=== PATIENT | male | born 1945 | race Caucasian/White ===

== ENCOUNTER 2017-02-18 07:58 | Emergency (ER) | payer OTHER ==
[2017-02-18 11:03] LABS: ANION GAP 11 mEq/L (8-16); CALCIUM 9.1 mg/dL (8.5-10.4); CARBON DIOXIDE 22 mEq/l (22-31); CHLORIDE 110 mEq/L (97-110); GLOMERULAR FILTRATION RATE > 60; GLUCOSE 102 mg/dL (70-100); POTASSIUM 4.9 mEq/L (3.5-5.2); SODIUM 143 mEq/L (134-144)
--- NOTE | 2017-02-18 11:45 | EDPHY ---
H & P Time Seen by Provider: 02/18/17 08:39 HPI/ROS: CHIEF COMPLAINT: Left leg pain HISTORY OF PRESENT ILLNESS: This 71-year-old man presents with pain in his left leg intermittently since last . He describes it is like a" charley horse" which is better if he exercises the leg. Describes the pain is intermittent. Sometimes shoots up from his calf into his thigh and hip area. It is not associated with skin changes or weakness or numbness in the foot or any known trauma. Pain is really intermittent worse sometimes it feels fine and then suddenly it will feel very painful and difficult to stand. He says the pain is definitely not exertional. Symptoms will come on when he is lying flat in bed. REVIEW OF SYSTEMS: Eye: no change in vision ENT: no sore throat Cardiac: no chest pain or syncope Pulmonary: no cough or SOB Abdomen: no vomiting, diarrhea, abdominal pain Musculoskeletal: HPI, no back pain. Skin: no rash Neuro: no headache Constitutional: no fever : No incontinence. A comprehensive 10 point review of systems is otherwise negative aside from elements mentioned in the history of present illness. PAST MEDICAL HISTORY: History of kidney stones and left knee meniscus surgery. Social history: Visiting from [place], nonsmoker. 214/108, 69, 16, 36.4. General Appearance: Alert and conversant, cooperative. Eyes: No scleral icterus. ENT, Mouth: Normal mucous membranes. Respiratory: Normal respiratory effort, breath sounds equal, lungs are clear to auscultation. Cardiovascular: Regular rate and rhythm. Gastrointestinal: Abdomen is soft and non tender. no pulsatile mass. Neurological: Alert and oriented x3. Normally conversant. Face symmetric, normal movement and sensation in all extremities. Straight leg raising negative bilaterally. Normal pulses in both feet posterior tibial. Patellar reflexes 2+ symmetric. Toes downgoing. Skin: Warm and dry, no rashes. Musculoskeletal: Compartments are soft and calf and thigh. Normal range of motion of left hip knee and ankle. Psychiatric: Not agitated. Emergency Department course/MDM: Negative x-ray of the tib-fib per Davy at 9:40 a.m.. Normal ultrasound per Hillary at 10:12 a.m., no DVT. Chemistries reviewed without metabolic abnormality. Discussed the patient I do not have a definite source for his pain although I think that with emergent condition such as compartment syndrome, aortic dissection, embolic aortic occlusion, fracture, arterial or venous clot, spinal cord compromise, are all unlikely. Does not give a history to suggest claudication is likely. Plan for symptomatic treatment and follow-up back in [place]. Elevated BP likely due to pain; doubt acute hypertensive emergency. Allergies/Adverse Reactions: Cephalosporins Allergy (Verified 02/18/17 11:45) prednisone Allergy (Verified 02/18/17 11:46) watermelon Allergy (Verified 02/18/17 11:45) Home Medications: Medication Instructions Recorded oxyCODONE/APAP 5/325 [Percocet] 1 - 2 tab PO Q6 PRN #11 tab 02/18/17 Medical Decision Making - Diagnostics Imaging Results: Imaging Impressions Extremity Venous Study 02/18/17 00:00 Impression: No deep venous thrombosis left leg. Results called to the emergency room at the time of the examination. Tibia/Fibula X-Ray 02/18/17 08:49 Impression: There is no acute osseous abnormality. A preliminary interpretation was provided to Dr. Charles Morgan at 9:30 AM on 2016. - Data Points Laboratory Results: Laboratory Results 02/18/17 06:15 02/18/17 06:15 02/18/17 02/18/17 06:15 06:15 WBC 5.09 10^3/uL 10^3/uL (3.80-9.50) RBC 5.14 10^6/uL 10^6/uL (4.40-6.38) Hgb 15.0 g/dL g/dL (13.7-17.5) Hct 44.2 % % (40.0-51.0) MCV 86.0 fL fL (81.5-99.8) MCH 29.2 pg pg (27.9-34.1) MCHC 33.9 g/dL g/dL (32.4-36.7) RDW 13.4 % % (11.5-15.2) Plt Count 258 10^3/uL 10^3/uL (150-400) MPV 9.0 fL fL (8.7-11.7) Neut % (Auto) 58.2 % % (39.3-74.2) Lymph % (Auto) 26.7 % % (15.0-45.0) [place] % (Auto) 10.8 % % (4.5-13.0) Eos % (Auto) 2.9 % % (0.6-7.6) Baso % (Auto) 1.0 % % (0.3-1.7) Nucleat RBC Rel Count 0.0 % % (0.0-0.2) Absolute Neuts (auto) 2.96 10^3/uL 10^3/uL (1.70-6.50) Absolute Lymphs (auto) 1.36 10^3/uL 10^3/uL (1.00-3.00) Absolute Monos (auto) 0.55 10^3/uL 10^3/uL (0.30-0.80) Absolute Eos (auto) 0.15 10^3/uL 10^3/uL (0.03-0.40) Absolute Basos (auto) 0.05 10^3/uL 10^3/uL (0.02-0.10) Absolute Nucleated RBC 0.00 10^3/uL 10^3/uL (0-0.01) Immature Gran % 0.4 % % (0.0-1.1) Immature Gran # 0.02 10^3/uL 10^3/uL (0.00-0.10) Sodium 143 mEq/L mEq/L (134-144) Potassium 4.9 mEq/L mEq/L (3.5-5.2) Chloride 110 mEq/L mEq/L (97-110) Carbon Dioxide 22 mEq/l mEq/l (22-31) Anion Gap 11 mEq/L mEq/L (8-16) BUN 18 mg/dL mg/dL (7-23) Creatinine 1.0 mg/dL mg/dL (0.7-1.3) Estimated GFR > 60 Glucose 102 mg/dL H mg/dL (70-100) Calcium 9.1 mg/dL mg/dL (8.5-10.4) Departure - Departure Disposition: Home, Routine, Self-Care Clinical Impression: Pain in calf Condition: Good Referrals: NONE *PRIMARY CARE P,. [Primary Care Provider] - As per Instructions Prescriptions: oxyCODONE/APAP 5/325 [Percocet] 1 - 2 tab PO Q6 PRN #11 tab PRN Reason: Pain
[2017-02-18 12:30] LABS: % IMMATURE GRANULYOCYTES 0.4 % (0.0-1.1); ABSOLUTE IMMATURE GRANULOCYTES 0.02 10^3/uL (0.00-0.10); ADD DIFF? NO; ADD MORPH? NO; ADD SCAN? NO; ATYPICAL LYMPHOCYTE FLAG 10 (0-99); FRAGMENT RBC FLAG 10 (0-99); HEMATOCRIT 44.2 % (40.0-51.0); LEFT SHIFT FLG 0 (0-99); LIPEMIA HEMOLYSIS FLAG 90 (0-99); MEAN CELL HEMOGLOBIN 29.2 pg (27.9-34.1); MEAN CELL HEMOGLOBIN CONCENTR. 33.9 g/dL (32.4-36.7); PLATELET CLUMPS FLAG 0 (0-99); PLATELET COUNT 258 10^3/uL (150-400); RED BLOOD CELL COUNT 5.14 10^6/uL (4.40-6.38); RED CELL DISTRIBUTION WIDTH 13.4 % (11.5-15.2)
== END 2017-02-18 11:49 | disposition home or self-care (01) ==
DX: M79.662 Pain in left lower leg (principal)